=== PATIENT | male | born 2000 | race African-American/Black ===

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

== ENCOUNTER 2021-05-19 17:41 | Emergency (ER) | payer OTHER ==
[~2021-05-19] VITALS: Ht 180.3 cm; Wt 65.0 kg
[2021-05-19] MEDS ORDERED: ALBUTEROL 6.7GM HFA INHALER ORI ONE (18:00)
[2021-05-19] MEDS ORDERED: ACETAMINOPHEN 325MG TABLET PO ONE (18:00)
[2021-05-19] MEDS ORDERED: PREDNISONE 20MG TABLET PO ONE (18:00)
[2021-05-19] MEDS ORDERED: ACET-2708 MT (21:58)
[2021-05-19] MEDS ORDERED: P20 MT (21:58)
[2021-05-19] MEDS ORDERED: ALBU6.7H9 INH (21:58)
[2021-05-19 22:07] VITALS: BP 130/80
== END 2021-05-19 22:07 | disposition home or self-care (01) ==
LOC: ER 17:41
DX: B34.9 Viral infection, unspecified (principal); J40 Bronchitis, not specified as acute or chronic; Z20.822 Contact with and (suspected) exposure to COVID-19
CPT/HCPCS: 71045; 87426; 87804; 94640; 99284; J7512

== ENCOUNTER 2021-08-27 20:13 | Emergency (ER) | payer OTHER ==
[~2021-08-27] VITALS: Ht 185.4 cm; Wt 84.0 kg
[~2021-08-27 20:13] MED LIST: ACET-2708 MT; ALBU6.7H9 INH; P20 MT
[2021-08-27] MEDS ORDERED: ONDANSETRON HCL 4MG/2ML INJ IV STA (20:50)
[2021-08-27] MEDS ORDERED: MORPHINE SULFATE 4 MG/ML CPJ (NOT FOR IM USE) IV STA (20:50)
[2021-08-27] MEDS ORDERED: SODIUM CHLORIDE 0.9% 1,000 ML IV ONE (21:00)
[2021-08-27 21:32] LABS: CLARITY URINE CLEAR (CLEAR); COLOR URINE YELLOW (YELLOW); KETONES URINE 1+ (NEGATIVE); LEUKOCYTE ESTERASE URINE NEGATIVE (NEGATIVE); NITRITE URINE NEGATIVE (NEGATIVE); OCCULT BLOOD URINE NEGATIVE (NEGATIVE); PH URINE 6.5 (4.5-8.0); PROTEIN URINE NEGATIVE (NEGATIVE); SPECIFIC GRAVITY URINE 1.038 (1.005-1.030)
[2021-08-27 21:45] LABS: CHLORIDE 110 mEq/L (98-107)
[2021-08-27 21:52] LABS: BASOPHILS % 0.9 % (0.0-2.0); EOSINOPHILS % 4.4 % (0.0-5.0); HEMATOCRIT. 40.6 % (42.0-52.0); HEMOGLOBIN. 13.7 g/dL (14.0-18.0); LYMPHOCYTES % 37.2 % (20.0-50.0); MEAN CORPUSCULAR HEMOGLOBIN 28.6 pg (28.0-32.0); MEAN CORPUSCULAR VOLUME 84.9 fL (80.0-94.0); MEAN PLATELET VOLUME 8.7 fl (7.4-10.4); MONOCYTES % 8.9 % (2.0-8.0); NEUTROPHILS % 48.6 % (40.0-76.0); PLATELET 226 x1000/uL (130-400); RED BLOOD CELL COUNT 4.79 mill/uL (4.7-6.1)
[2021-08-27] MEDS ORDERED: IBUP-2028 MT (23:04)
[2021-08-27 23:20] VITALS: BP 122/59
== END 2021-08-27 23:39 | disposition home or self-care (01) ==
LOC: ER 20:13
DX: R10.33 Periumbilical pain (principal); F41.9 Anxiety disorder, unspecified
CPT/HCPCS: 36415; 74176; 80053; 81003; 83690; 85025; 93005; 96360; 99285; J7030; Z7610; J2270; J2405